=== PATIENT | male | born 1965 ===

== ENCOUNTER 2025-07-28 09:47 | Emergency (ER) | payer BC ==
[2025-07-28 10:30] LABS: PLATELET COUNT,PLT 196 10^3/uL (150-450); RED BLOOD CELL COUNT 4.31 10^6/uL (4.6-6.2); WHITE BLOOD CELL COUNT,WBC 23.8 10^3/uL (5.0-10.0)
[2025-07-28 10:45] LABS: BASOPHILS PERCENT AUTO 0.1 % (0.0-1.0); EOSINOPHILS PERCENT AUTO 0.0 % (1.0-3.0); LYMPHOCYTES PERCENT AUTO 5.3 % (20.5-50.1); MONOCYTES PERCENT AUTO 8.8 % (2-8); NEUTROPHILS PERCENT AUTO 85.8 % (42.2-75.2)
[2025-07-28 10:50] LABS: ALANINE AMINOTRANSFERASE,ALT 33 U/L (16-63); ASPARTATE AMNIOTRANSFERASE,AST 25 U/L (15-37); BILIRUBIN TOTAL 1.3 mg/dL (0.2-1.0); BLOOD UREA NITROGEN,BUN 12 mg/dL (7-18); CARBON DIOXIDE,CO2 25 mmol/L (21-32); CHLORIDE,CL 96 mmol/L (98-107); CREATINE KINASE,CK 428 U/L (39-308); CREATININE 1.01 mg/dL (0.70-1.30); GLUCOSE RANDOM 178 mg/dL (70-99); POTASSIUM,K 3.4 mmol/L (3.5-5.1); PROTEIN TOTAL,TP 7.3 g/dL (6.4-8.2); SODIUM,NA 133 mmol/L (136-145)
[2025-07-28 10:53] LABS: LACTIC ACID 1.2 mmol/L (0.4-2.0)
[2025-07-28 10:59] LABS: A/G RATIO 0.59; ESTIMATED GFR 85 mL/min (>=60)
[2025-07-28 11:07] LABS: B-TYPE NATRIURETIC PEPTIDE,BNP 84 pg/ml (0-100)
[2025-07-28 11:26] LABS: BAND PERCENT MAN 4 %; LYMPHOCYTES PERCENT MAN 5 % (20-50); MONOCYTES PERCENT MAN 8 % (2-8); SEG NEUTROPHILS PERCENT MAN 83 % (42-75)
[2025-07-28] MEDS: Iopamidol 755 Mg/ML 100 ML Bottle IVPUSH ONE (11:28)
[2025-07-28 12:11] LABS: APPEARANCE,URINE CLEAR (CLEAR); GLUCOSE,URINE NEGATIVE (NEGATIVE); OCCULT BLOOD,URINE MODERATE (NEGATIVE)
[2025-07-28 12:25] LABS: EPITHELIAL CELLS,URINE RARE /HPF (NOT SEEN)
== END 2025-07-28 15:45 ==
LOC: DL.ED 09:47
DX: L03.116 Cellulitis of left lower limb (principal); R60.0 Localized edema; D72.829 Elevated white blood cell count, unspecified; E11.9 Type 2 diabetes mellitus without complications
CPT/HCPCS: 36415; 71045; 71275; 80053; 81001; 82550; 83605; 83690; 83735; 83880; 84484; 85025; 85379; 87040; 93005; 96374; 99285; J0696; Q9967